=== PATIENT | female | born 1935 | race Caucasian/White ===

== ENCOUNTER 2019-02-03 12:31 | Inpatient (IN) ==
[2019-02-03] MEDS ORDERED: NORCO-5 PO ONE (13:41)
[2019-02-03] MEDS ORDERED: ZOFRAN IV ONE (14:42)
[2019-02-03] MEDS ORDERED: MORPHINE IV ONE (14:42)
--- NOTE | 2019-02-03 14:42 | Diag Imaging Result Doc PS360 ---
XRAY PELVIS W/HIP 2-3VW LT - 02/03/2019 INDICATION: fall with left hip pain TECHNIQUE: Three views COMPARISON: None FINDINGS: There is a displaced and badly comminuted intertrochanteric fracture of the left proximal femur. No dislocation. IMPRESSION: Badly comminuted, displaced intertrochanteric left hip fracture. Electronically signed by Korey Godoy 02/03/2019 2:40 PM
[2019-02-03 15:51] LABS: BASO# 0.02 X1000 (0.0-0.2); BASO% 0.1 % (0.0-0.8); EOS# 0.09 X1000 (0.0-0.7); EOS% 0.5 % (0.0-10.0); HEMATOCRIT 37.9 % (37.0-47.0); HEMOGLOBIN 12.4 g/dL (12.0-16.0); IMM GRAN# 0.06 X1000 (0.0-0.04); IMM GRAN% 0.4 % (0.0-0.5); LYMPH# 1.44 X1000 (1.2-3.4); LYMPH% 8.8 % (20.5-51.1); MCH 28.4 PG (27-31); MCHC 32.7 g/dL (33-37); MCV 86.9 FL (81-99); MONO# 0.53 X1000 (0.11-0.59); MONO% 3.2 % (1.7-9.3); NEUT# 14.25 X1000 (1.4-6.5); PLT 134 X1000 (130-400); RBC 4.36 XMIL (4.2-5.4); RDW 13.3 % (11.5-14.5); WBC 16.39 X1000 (4.8-10.8)
[2019-02-03 16:03] LABS: ALB/GLOB RATIO 1.4; ALBUMIN 3.9 g/dL (3.5-5.0); CALCIUM 8.8 mg/dL (8.8-10.2); CREATININE 1.4 mg/dL (0.5-0.9); POTASSIUM 4.2 mmol/L (3.5-5.1); TOTAL BILIRUBIN 0.22 mg/dL (0.20-1.00); TOTAL PROTEIN 6.7 g/dL (6.3-8.3)
--- NOTE | 2019-02-03 16:32 | PROVIDER DOCUMENTATION ---
This chart was entered by Gisela Jones Scribe, acting as scribe for Corin Ho MD. 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 Pt denies hitting head or LOC. Pt has hx of HTN and DM. Quality of Pain: reports: sharp Severity in ED: mild, moderate Onset/Duration: just prior to arrival Timing: still present Modifying Factors: worse with: movement, palpation Any recent injury?: Yes Locality of Occurance: Home Similar Symptoms Previously?: No Recently seen or treated by another doctor?: No - FALL INJURY Location of Pain/Injury: reports: pelvis (left) Reason for Fall: reports: lost balance Symptoms prior to fall:: reports: none Loss of Consciousness: no loss of consciousness Injury Associated Symptoms: reports: joint pain (left hip), unable to bear weight (left hip) Review of Systems - Adult - REVIEW OF SYSTEMS - ADULT Constitutional: reports: see HPI. denies: chills, fever, fatique Eyes: reports: no symptoms reported Ears, Nose, Mouth & Throat: reports: no symptoms reported Cardiovascular: reports: see HPI. denies: chest pain, palpitations Respiratory: reports: no symptoms reported Gastrointestinal: reports: no symptoms reported Genitourinary: reports: no symptoms reported Musculoskeletal: reports: see HPI, joint pain (left hip). denies: neck pain Integumentary: reports: no symptoms reported Neurological: reports: no symptoms reported Psychiatric: reports: no symptoms reported Endocrine: reports: no symptoms reported Hematologic/Lymphatic: reports: no symptoms reported Allergic/Immunologic: reports: no symptoms reported All Other Systems: Reviewed and Negative Past History - Adult - PAST MEDICAL HISTORY-ADULT Review of Records: reports: Nursing Assessment Review, Medications Reviewed, Social history reviewed & non-contributory. Major Childhood Illnesses: reports: denies history Cardiovascular: reports: HTN Respiratory: reports: denies history Gastrointestinal: reports: denies history Obstetrical/Gynecological: reports: denies history Genitourinary: reports: denies history Musculoskeletal: reports: denies history Neurological: reports: denies history Endocrine/Immune: reports: Diabetes Other Conditions: reports: denies history - PRIOR SURGERIES/PROCEDURES Surgical/Procedure History: reports: cholecystectomy, hysterectomy - IMMUNIZATION STATUS Childhood Immunizations: See Nurse Assessment Flu Vaccine: See Nurse Assessment - FAMILY HISTORY Family History: reviewed, not pertinent - SOCIAL HISTORY Smoking: denies Physical Exam-Injury Related - Physical Exam-Injury Related Initial Vital Signs Reviewed: Yes General Appearance: appears well, alert, mild distress. negative: anxious, combative Immobilization?: negative: backboard, C-collar Eyes: PERRL/EOMI, pink conjunctivae. negative: photophobia Head, Ears, Nose, Mouth & Throat: normocephalic/atraumatic, moist mucous membranes. negative: angioedema Neck: full range of motion, normal inspection. negative: C-spine tenderness Respiratory: chest non-tender, lungs clear, normal breath sounds. negative: rhonchi, stridor, wheezing Cardiovascular: normal peripheral pulses, regular rate, rhythm, no edema. negative: bradycardia, tachycardia Abdominal Exam: normal bowel sounds, non tender, soft. negative: guarding, rigid Back Exam: normal inspection, no CVA tenderness, no vertebral tenderness Extremity: no pedal edema, no calf tenderness, normal capillary refill, tenderness (left hip), other (limited ROM to left hip). negative: deformity Integumentary: normal color. negative: erythema, jaundice Psych/Mental Status: normal mood/affect, oriented x 3. negative: anxious, disheveled - Glascow Coma Score Best Eye Response ([place]): (4) open spontaneously Best Verbal Response ([place]): (5) oriented Best Motor Response ([place]): (6) obeys commands [place] Total: 15 Progress - PLAN OF CARE/RESULTS Progress/Plan/Lab Results: Vital Signs - 8 hr 02/03/19 12:42 Temperature 98.3 F Pulse Rate 71 Respiratory Rate 16 Blood Pressure 127/52 O2 Sat by Pulse Oximetry 98 Laboratory Results - last 24 hr 02/03/19 02/03/19 14:23 14:23 WBC 16.39 H RBC 4.36 Hgb 12.4 Hct 37.9 MCV 86.9 MCH 28.4 MCHC 32.7 L RDW Std Deviation 13.3 Plt Count 134 MPV Not Reportable Immature Gran % (Auto) 0.4 Neut % (Auto) 87.0 H Lymph % (Auto) 8.8 L [place] % (Auto) 3.2 Eos % (Auto) 0.5 Baso % (Auto) 0.1 Immature Gran # (Auto) 0.06 H Neut # (Auto) 14.25 H Lymph # (Auto) 1.44 [place] # (Auto) 0.53 Eos # (Auto) 0.09 Baso # (Auto) 0.02 Sodium 136 Potassium 4.2 Chloride 100 Carbon Dioxide 24 L Anion Gap 12 BUN 32 H Creatinine 1.4 H Estimated GFR/1.73 m2 36 BUN/Creatinine Ratio 23 Glucose 211 H Calculated Osmolality 285 Calcium 8.8 Total Bilirubin 0.22 AST 22 ALT 18 Alkaline Phosphatase 97 Total Protein 6.7 Albumin 3.9 Globulin 2.8 Albumin/Globulin Ratio 1.4 Orders Category Date Time Status XRAY PELVIS W/HIP 2-3VW LT [RAD] Stat Exams 02/03/19 13:41 Completed CBC WITH DIFF [HEME] Stat Lab 02/03/19 14:23 Completed CMP [COMPREHENSIVE METABOLIC PANEL] [CHEM] Stat Lab 02/03/19 14:23 Completed Hydrocodone/APAP 5 mg/325 mg [[place]-5] Med 02/03/19 13:41 Discontinued 1 each PO NOW ONE Morphine Med 02/03/19 14:42 Discontinued 4 mg IV NOW ONE Ondansetron [Zofran] Med 02/03/19 14:42 Discontinued 4 mg IV NOW ONE Permit for: Routine Oth 02/03/19 15:56 Ordered Result Diagrams: 02/03/19 14:23 02/03/19 14:23 - XRAY 1 XRAY: Left XRAY Study: Pelvis, Hip Impression: See EMR Report (IMPRESSION: Badly comminuted, displaced intertrochanteric left hip fracture. Electronically signed by Korey Godoy 02/03/2019 2:40 PM) - CONSULTS/PCP/HOSPITALIST Notification #1 *Consult/PCP/Hospitalist*: Dr. Duncan Time Discussed: 15:25 Consult Disposition: other (will consult after pt is admitted to hospitalist) #2 Consult: Ann/[employer] Time Discussed: 15:38 Consult Disposition: Admit (accepts admission), other (wants labs back and then call her back) Departure - Departure Date of Disposition Decision: 02/03/19 Time of Disposition Decision: 16:24 DIAGNOSIS: Fracture of left femur Qualifiers: Encounter type: initial encounter Femur location: intertrochanteric Fracture type: closed Fracture alignment: displaced Qualified Code(s): S72.142A - Displaced intertrochanteric fracture of left femur, initial encounter for closed fracture CKD (chronic kidney disease) Qualifiers: Chronic kidney disease stage: unspecified stage Qualified Code(s): N18.9 - Chronic kidney disease, unspecified Disposition: ADMITTED INPATIENT 09 Certified Medical Emergency: Emergent Condition: Stable Referrals and Follow-Ups: Tanner Murphy MD [Primary Care Provider] - - Critical Care Note This patient required my direct & personal management of CC.: No Attestation - Physician/ LIU Attestation Patient care was provided by Advanced Practice Provider:: No The physician spent face to face time with patient:: Yes Advanced Practice Provider documentation review:: Supervising physician onsite and consulted in the evaluation and care of this patient. The physician did have a face to face encounter with the patient. This chart was documented by the indicated scribe, (Gisela Jones Scribe) and accurately reflects the services I performed and decisions made by me, Corin Ho MD, as attested by the provider's signature.
[2019-02-03] MEDS ORDERED: ROBINUL ONE (16:33)
[2019-02-03] MEDS ORDERED: XYLOCAINE-MPF 2% ONE (16:33)
[2019-02-03] MEDS ORDERED: DIPRIVAN 1% ONE (16:33)
[2019-02-03 16:40] LABS: URINE SOURCE CATH
[2019-02-03 16:43] LABS: BILIRUBIN URINE NEGATIVE (NEGATIVE); BLOOD URINE NEGATIVE (NEGATIVE); COLOR YELLOW; GLUCOSE URINE 300 mg/dL (NEGATIVE); KETONE URINE NEGATIVE (NEGATIVE); LEUKOCYTES URINE NEGATIVE (NEGATIVE); NITRITE URINE NEGATIVE (NEGATIVE); PH URINE 5.5; PROTEIN URINE NEGATIVE (NEGATIVE); SP GRAVITY URINE 1.019; TURBIDITY URINE CLEAR (CLEAR); UR EPITHELIAL CELLS <10 /HPF (<10); URINE BACTERIA NEGATIVE /HPF; URINE RBC <10 /HPF (<10); URINE WBC <10 /HPF (<10); UROBILINOGEN URINE NORMAL (NORMAL)
[2019-02-03] MEDS ORDERED: KEFZOL 1 GM/D5W 1 GM/50 ML IVPB ONE (16:50)
[2019-02-03] MEDS ORDERED: ZOFRAN IV PRN ×2 (16:59→19:02)
[2019-02-03] MEDS ORDERED: TYLENOL PO PRN (16:59)
[2019-02-03] MEDS ORDERED: NS 1,000 ML IV SCH (17:00)
--- NOTE | 2019-02-03 17:01 | ORTHOPAEDICS CONSULTATION ---
DATE: 02/03/2019 BRIEF HISTORY: The patient is an 83-year-old female, who is status post fall off a two-step ladder, injuring her left hip. She developed immediate pain and discomfort in the left hip. She denies loss of consciousness. She presented to the emergency room. X-rays were obtained and revealed a left displaced intertrochanteric femur fracture. Orthopedic consultation is requested. ALLERGIES: Latex and penicillin. PAST MEDICAL HISTORY: Type 2 diabetes, essential hypertension, hypercholesterolemia, and chronic kidney disease. PAST SURGICAL HISTORY: Cholecystectomy and hysterectomy. PHYSICAL EXAMINATION: General: Patient is awake, alert, and cooperative with exam. Neck: Cervical spine is nontender to palpation. She is nontender with range of motion. Extremities: Bilateral upper extremities nontender to palpation. Nontender with gentle movement. The patient's left hip is shortened and slightly held in a flexed position with toe under her knee. She has tenderness to palpation diffusely along the hip. Tenderness to gentle movement. Compartments are soft. She has active dorsiflexion and plantar flexion. Her right lower extremity is nontender to palpation and nontender with gentle movement. Her right lower extremity has no palpable deformity. Calf is soft. The rest intact. She is grossly neurovascularly intact, bilaterally. IMAGING: X-rays were reviewed revealing a left displaced intertrochanteric femur fracture. IMPRESSION: Left displaced intertrochanteric femur fracture. PLAN: At this point, discussed treatment options with the patient and family. At this time, would recommend proceeding with intramedullary nail of the left femur. Risks and benefits of surgery were explained, including the risks of anesthesia, , bleeding, infection, failure to relieve pain, postoperative stiffness, nerve injury, blood clots, and other imponderables. All questions were answered. The patient and family agree treatment plan. HOME MEDICATIONS: Amlodipine besylate 5 mg p.o. daily, vitamin D 50,000 unit capsule p.o. q 7 days, glipizide 10 mg p.o. b.i.d., hydrochlorothiazide 25 mg p.o. q daily, losartan potassium 100 mg p.o. daily, simvastatin 5 mg p.o. q. P.m., vitamin D3 5000 unit capsule p.o. daily, magnesium oxide 4 mg p.o. daily. cc: Toi Duncan MD
[2019-02-03] MEDS ORDERED: KETAMINE ONE (17:05)
[2019-02-03] MEDS ORDERED: OFIRMEV 1000 MG/ISOTONIC SOLN 1,000 MG/100 ML BOTTLE ONE (17:11)
[2019-02-03] MEDS ORDERED: ZOFRAN ONE (17:12)
[2019-02-03] MEDS ORDERED: DECADRON ONE (17:12)
[2019-02-03] MEDS ORDERED: GLUCOTROL PO SCH (17:30)
--- NOTE | 2019-02-03 17:43 | HISTORY AND PHYSICAL ---
ADDENDUM: The patient is seen and examined by me [id number]. All the laboratory, vital signs and images were reviewed. 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 X-ray of that area showed a displaced intertrochanteric femur fracture on the left side. This patient has been evaluated by Orthopedic Surgery Department and they will take this patient to the operating room today. This patient has a medical history of hypertension, diabetes and dyslipidemia. We will monitor this patient closely. She is allergic to penicillin. I agree with the rest of the nurse practitioner's assessment and plan. cc: Adin Dickinson MD
--- NOTE | 2019-02-03 17:53 | HISTORY AND PHYSICAL ---
PRIMARY CARE PROVIDERS: Tanner Murphy MD or Lary Christian, his nurse practitioner. CHIEF COMPLAINT: Fall with left hip pain. HISTORY OF PRESENT ILLNESS: Ms. Reva Pal is an 83-year-old female with a medical history of diabetes mellitus type 2, hypertension, hyperlipidemia, CKD stage 2, who states that she was on a 2 step ladder, was going to put some garland up in her tree before going to the grocery store. She had a fall. She said she actually fell on her right side but felt the pain in the left side. Her neighbor saw this incident happen and called 911. She presented had imaging that revealed that she had a badly comminuted, displaced intertrochanteric left hip fracture. Dr. Duncan was consulted and she is going for urgent surgery at this time. PAST MEDICAL HISTORY: 1. Diabetes mellitus type 2. 2. Hypertension. 3. Hyperlipidemia. 4. Anxiety, depression. 5. CKD stage 2. SURGICAL HISTORY: 1. Hysterectomy. 2. Cholecystectomy. 3. Bilateral cataracts. SOCIAL HISTORY: Denies tobacco, alcohol, or illicit drug use. She was for 62 years. about 4 years ago. They had a son and a daughter together. She has 2 grandkids. She does not work. She does not use any assistive devices for ambulation. FAMILY HISTORY: Mother had a heart attack. Had to have coronary artery bypass grafting at 85 and did not until she was 96 years old. Father had a massive [place] at age 51. ALLERGIES: Penicillin causes rash. She also has a latex allergy. HOME MEDICATIONS: 1. Amlodipine besylate 5 mg p.o. daily. 2. Glucotrol 10 mg p.o. twice daily. 3. Hydrochlorothiazide 25 mg p.o. daily. 4. Losartan potassium 100 mg p.o. daily. 5. MagOx 400 mg p.o. daily. 6. Simvastatin 5 mg p.o. nightly. 7. Vitamin D2 04264 units p.o. every 7 days. 8. Vitamin D3 5000 units p.o. daily. REVIEW OF SYSTEMS: Fourteen point review of systems are complete and all were negative except for those mentioned above in HPI. PHYSICAL EXAMINATION: VITAL SIGNS: Temperature 98 degrees, heart rate 73, respiratory rate 14, blood pressure 141/64, O2 saturation 95% on room air. GENERAL: Ms. Reva Pal is an 83-year-old female. She is in no acute distress. She is able to answer questions appropriately. HEENT: Atraumatic, normocephalic. Pupils equal, round, reactive to light. Extraocular movements intact. Mucous membranes are dry. NECK: Trachea midline. CARDIOVASCULAR: S1, S2. Regular rate and rhythm. No rubs, gallops, murmurs. No lower extremity edema. There are +2 dorsalis and radial pulses. Negative JVD or carotid bruits. PULMONARY: Clear to auscultation. Bilateral breath sounds. No accessory muscle use or work of breathing noted. GI: Soft, nontender, nondistended. Positive bowel sounds x4. EXTREMITIES: Moves all extremities equally except for the left lower extremity due to recent fracture. Sensations intact. SKIN: Warm, dry, intact. NEUROLOGIC: A and O x3. Follows commands. Sensory is intact. SKIN: Warm and dry. LABORATORY DATA: White blood cells 16,000, hemoglobin 12, hematocrit 37, platelet count 134,000. Sodium 136, potassium 4.2, BUN 32, creatinine is 1.4, glucose 211, calcium 8.8. Bilirubin 0.22, AST 22, ALT 18, albumin 3.9. Urinalysis 300 glucose, otherwise negative. IMAGING: Hip and pelvic x-ray: Badly comminuted, displaced intertrochanteric left hip fracture. ASSESSMENT AND PLAN: 1. Leukocytosis is mostly secondary to inflammatory response of hip fracture. We will monitor this and currently urinalysis is clear. They did not get blood cultures prior to leaving for surgery or a chest x-ray, so those need to be considered. Otherwise, she has no signs or symptoms or complaints of any type of infection. 2. Fall with a left badly comminuted, displaced intertrochanteric hip fracture. Now has left for surgery with Dr. Duncan for surgical repair. 3. Diabetes mellitus type 2. Will do pattern blood glucoses and sliding scale insulin. 4. Hypertension. Continue home medications. 5. Hyperlipidemia. Continue statin. 6. Chronic kidney disease stage 2 is stable. 7. Anxiety, depression. No medications for that. 8. Deep venous thrombosis prophylaxis. Will evaluate postop. Dictated by ARASH Alanis for Adin Dickinson MD cc: ARASH Alanisinos, MD
[2019-02-03] MEDS ORDERED: NS 1,000 ML ONE (17:57)
[2019-02-03] MEDS: DILAUDID ONE ×2 (18:00→18:04)
[2019-02-03] MEDS ORDERED: PERCOCET-5 ONE (18:31)
--- NOTE | 2019-02-03 18:48 | OPERATIVE NOTE ---
PROCEDURE DATE: 02/03/2019 PREOPERATIVE DIAGNOSIS: Left displaced intertrochanteric femur fracture. POSTOPERATIVE DIAGNOSIS: Left displaced intertrochanteric femur fracture. PROCEDURE: Intramedullary nailing of the left femur with a Synthes 11 x 380 mm TFN nail. SURGEON: Dr. Toi Duncan. ANESTHESIA: General. IV FLUIDS: 800 mL lactated Ringer. ESTIMATED BLOOD LOSS: 50 mL. COMPLICATIONS: None. INDICATIONS: The patient is an 83-year-old female status post fall from a stepladder earlier today. She developed immediate pain and discomfort in the left hip. She presented to the emergency room. X-rays revealed left displaced intertrochanteric femur fracture. Given patient's findings, recommendation to proceed with intramedullary nailing of the left femur was offered. Risks and benefits of surgery were explained, including the risks of anesthesia, , bleeding, infection, failure to relieve pain, postoperative stiffness, nerve injury, blood clots, and other imponderables. All questions were answered. The patient and family wished to proceed with surgery. DESCRIPTION OF PROCEDURE: The patient was taken to the operating room and placed supine on the operating table. Once adequate anesthesia was obtained, patient was placed on the fracture table. Reduction was then obtained and confirmed with C-arm visualization in both AP and lateral projections. The left lower extremity was subsequently prepped and draped in usual sterile fashion. Approximately three fingerbreadths proximal to the greater trochanter, a lateral incision was made. Blunt dissection was performed to the gluteus mehdi to the tip of the greater trochanter. A guide pin was then placed in position. Had good position in both AP and lateral projections. After this had been performed, the starting reamer was then passed. A ball-tip guide pin was placed in position. The length of the nail was determined to be 380 mm. A 12 mm reamer was easily passed. An 11 x 380 mm Synthes TFN nail was then placed. The ball-tipped guide pin was removed. Using the outrigger guide, guide was placed through a stab incision in the lateral proximal cortex. A guide pin was then placed through the nail, across the fracture site, into the femoral neck and head. Had good position in both AP and lateral projections. The lateral cortex was then reamed. A 95 mm helical blade was then advanced and had excellent purchase. The proximal set screw was tightened in standard fashion. Attention was then turned to the distal femur. Using perfect chefornak technique, two distal locking screws were placed. Final C-arm visualization revealed good alignment of the fracture and good position of the hardware. Wounds were copiously irrigated. #1 Vicryl was used to repair the deep fascia of the proximal wound, followed by 2-0 Vicryl in two proximal wounds, and skin hilaria in all the wounds. Adaptic, sterile 4x4s and a tape was applied to the wounds. Patient tolerated the procedure well. No complications. She was transferred to recovery in stable condition. cc: Toi Duncan MD
[2019-02-03] MEDS ORDERED: MILK OF MAGNESIA PO PRN (19:02)
[2019-02-03] MEDS ORDERED: MORPHINE IV PRN (19:02)
[2019-02-03] MEDS ORDERED: HALDOL IV PRN (19:15)
[2019-02-03] MEDS: HUMULIN R SUBQ SCH (21:00)
[2019-02-04] MEDS: KEFZOL 1 GM/D5W 1 GM/50 ML IVPB IV SCH ×2 (01:31→11:35)
[2019-02-04] MEDS: TYLENOL PO SCH ×3 (01:31→22:40)
[2019-02-04] MEDS: OXY IR PO PRN ×2 (01:31→12:24)
[2019-02-04] MEDS: XARELTO PO SCH (06:56)
[2019-02-04] MEDS: HUMULIN R SUBQ SCH ×4 (06:57→22:00)
[2019-02-04 07:21] LABS: HEMATOCRIT 32.4 % (37.0-47.0); HEMOGLOBIN 10.3 g/dL (12.0-16.0); IMM GRAN# 0.03 X1000 (0.0-0.04); IMM GRAN% 0.2 % (0.0-0.5); LYMPH# 0.95 X1000 (1.2-3.4); MCH 28.2 PG (27-31); MCHC 31.8 g/dL (33-37); MCV 88.8 FL (81-99); MONO# 0.39 X1000 (0.11-0.59); MONO% 2.9 % (1.7-9.3); MPV 13.8 FL (7.4-10.4); NEUT# 12.19 X1000 (1.4-6.5); NEUT% 89.9 % (42.2-75.2); PLT 119 X1000 (130-400); RBC 3.65 XMIL (4.2-5.4); RDW 13.2 % (11.5-14.5); WBC 13.56 X1000 (4.8-10.8)
[2019-02-04 07:44] LABS: LYMPHS 8 % (21-51); MONO 4 % (1-9); SEGS 88 % (42-75)
--- NOTE | 2019-02-04 07:45 | ORTHOPAEDICS PROGRESS NOTE ---
DATE: 02/04/2019 SUBJECTIVE: The patient is a pleasant 83-year-old female, who is 1 day status post intramedullary nailing of the left femur. She is currently resting comfortably. OBJECTIVE: On physical examination, the patient's left lower extremity dressing is intact. Calf is soft. She does have active dorsiflexion, plantar flexion. LABORATORY DATA: Her hemoglobin is 10.3, hematocrit is 32.4. IMPRESSION: Postoperative day #1 status post intramedullary nailing of the left femur. PLAN: At this point, the patient seems to be resting comfortably with no significant complaints this morning. The patient will be allowed to be weightbearing as tolerated, left lower extremity. We will consult [facility] for discharge planning. cc: Toi Duncan MD
[2019-02-04 07:58] LABS: ALB/GLOB RATIO 1.5; ALBUMIN 3.4 g/dL (3.5-5.0); CALCIUM 8.1 mg/dL (8.8-10.2); CREATININE 1.6 mg/dL (0.5-0.9); MAGNESIUM 1.9 mg/dL (1.5-2.7); TOTAL BILIRUBIN 0.28 mg/dL (0.20-1.00); TOTAL PROTEIN 5.6 g/dL (6.3-8.3)
[2019-02-04 08:25] LABS: POTASSIUM 4.9 mmol/L (3.5-5.1)
[2019-02-04] MEDS: NS 1,000 ML IV SCH ×2 (08:29→11:34)
[2019-02-04] MEDS: ZOCOR PO SCH ×2 (08:30→22:36)
[2019-02-04] MEDS: COLACE PO SCH ×2 (08:30→22:35)
[2019-02-04] MEDS: VITAMIN D PO SCH (11:35)
[2019-02-04] MEDS: GLUCOTROL PO SCH ×2 (11:35→22:34)
[2019-02-04] MEDS: FERROUS SULFATE PO SCH (11:35)
[2019-02-04] MEDS: HYDROCHLOROTHIAZIDE PO SCH (11:36)
[2019-02-04] MEDS: NORVASC PO SCH (11:37)
[2019-02-04] MEDS: MAG-OX PO SCH (11:37)
[2019-02-04] MEDS: COZAAR PO SCH (11:37)
[2019-02-04] MEDS: PERIDEX MT SCH ×2 (13:26→22:34)
[2019-02-05] MEDS: XARELTO PO SCH (06:52)
[2019-02-05] MEDS: TYLENOL PO SCH ×3 (06:52→22:20)
[2019-02-05] MEDS: HUMULIN R SUBQ SCH ×4 (07:00→22:20)
[2019-02-05 07:03] LABS: BASO# 0.01 X1000 (0.0-0.2); BASO% 0.1 % (0.0-0.8); EOS# 0.13 X1000 (0.0-0.7); HEMATOCRIT 27.8 % (37.0-47.0); IMM GRAN# 0.03 X1000 (0.0-0.04); IMM GRAN% 0.2 % (0.0-0.5); LYMPH# 2.99 X1000 (1.2-3.4); LYMPH% 23.6 % (20.5-51.1); MCH 28.7 PG (27-31); MCHC 32.4 g/dL (33-37); MCV 88.5 FL (81-99); MONO% 4.7 % (1.7-9.3); MPV 13.9 FL (7.4-10.4); NEUT# 8.92 X1000 (1.4-6.5); NEUT% 70.4 % (42.2-75.2); PLT 102 X1000 (130-400); RBC 3.14 XMIL (4.2-5.4); RDW 13.1 % (11.5-14.5); WBC 12.68 X1000 (4.8-10.8)
[2019-02-05 07:33] LABS: ALB/GLOB RATIO 1.3; ALBUMIN 2.9 g/dL (3.5-5.0); CALCIUM 7.9 mg/dL (8.8-10.2); CREATININE 1.6 mg/dL (0.5-0.9); POTASSIUM 4.1 mmol/L (3.5-5.1); TOTAL BILIRUBIN 0.27 mg/dL (0.20-1.00); TOTAL PROTEIN 5.1 g/dL (6.3-8.3)
[2019-02-05] MEDS: NS 1,000 ML IV SCH (08:05)
[2019-02-05] MEDS: FERROUS SULFATE PO SCH (08:07)
[2019-02-05] MEDS: MAG-OX PO SCH (09:50)
[2019-02-05] MEDS: NORVASC PO SCH (09:50)
[2019-02-05] MEDS: GLUCOTROL PO SCH ×2 (09:50→22:20)
[2019-02-05] MEDS: HYDROCHLOROTHIAZIDE PO SCH (09:50)
[2019-02-05] MEDS: VITAMIN D PO SCH (09:50)
[2019-02-05] MEDS: PERIDEX MT SCH ×2 (09:50→22:20)
[2019-02-05] MEDS: COZAAR PO SCH (09:50)
[2019-02-05] MEDS: OXY IR PO PRN (10:38)
--- NOTE | 2019-02-05 19:25 | ORTHOPAEDICS PROGRESS NOTE ---
DATE: 02/05/2019 SUBJECTIVE: Ms. Pal is a pleasant 83-year-old female who is postop day 2 of an intramedullary nailing of the left femur. She is resting comfortably in bed at this time. She is talking without any acute distress. She states that she has ambulated twice today, both of which were to the bedside commode, and she was not able to bear much weight on her left lower extremity. OBJECTIVE: On physical exam, Ms. Pal's left lower extremity dressing is intact, clean and dry. There is no drainage noted at this time. There is no surrounding redness of any of her incisions. Her calf is soft. She does have active dorsiflexion and plantar flexion of her left foot. Her sensation is what it was prior to surgery, which is slightly decreased, but this has been a chronic problem. Her most recent vital signs show a heart rate of 59 and blood pressure of 122/41. LABORATORY DATA: Her hemoglobin and hematocrit today are 9 and 27, and she is asymptomatic from this. ASSESSMENT: Postoperative day 2, status post intramedullary nailing of the left femur. PLAN: At this point Ms. Pal can continue to be weightbearing as tolerated to her left lower extremity. [facility] has been consulted for discharge planning. Ms. Pal states that she believes at this time that she will be going to [facility] for rehab. She will ultimately be discharged by the hospitalist team. Dictated by ARASH Galeana for Toi Duncan MD cc: Toi Duncan MD
[2019-02-05] MEDS: ZOCOR PO SCH (22:20)
[2019-02-05] MEDS: COLACE PO SCH (22:20)
[2019-02-06] MEDS: XARELTO PO SCH (05:37)
[2019-02-06] MEDS: TYLENOL PO SCH (05:37)
[2019-02-06] MEDS: NS 1,000 ML IV SCH (06:40)
[2019-02-06 07:13] LABS: BASO# 0.02 X1000 (0.0-0.2); BASO% 0.2 % (0.0-0.8); EOS% 4.1 % (0.0-10.0); HEMATOCRIT 28.3 % (37.0-47.0); IMM GRAN# 0.02 X1000 (0.0-0.04); IMM GRAN% 0.2 % (0.0-0.5); LYMPH# 1.53 X1000 (1.2-3.4); LYMPH% 15.6 % (20.5-51.1); MCH 28.1 PG (27-31); MCHC 31.8 g/dL (33-37); MCV 88.4 FL (81-99); MONO# 0.67 X1000 (0.11-0.59); MONO% 6.8 % (1.7-9.3); MPV 13.9 FL (7.4-10.4); NEUT# 7.17 X1000 (1.4-6.5); NEUT% 73.1 % (42.2-75.2); PLT 114 X1000 (130-400); RDW 13.1 % (11.5-14.5); WBC 9.81 X1000 (4.8-10.8)
[2019-02-06 07:29] LABS: ALB/GLOB RATIO 1.2; CALCIUM 8.1 mg/dL (8.8-10.2); CREATININE 1.5 mg/dL (0.5-0.9); MAGNESIUM 1.9 mg/dL (1.5-2.7); POTASSIUM 4.7 mmol/L (3.5-5.1); TOTAL BILIRUBIN 0.34 mg/dL (0.20-1.00); TOTAL PROTEIN 5.6 g/dL (6.3-8.3)
[2019-02-06] MEDS: HUMULIN R SUBQ SCH ×2 (07:30→11:48)
[2019-02-06] MEDS: FERROUS SULFATE PO SCH (10:31)
[2019-02-06] MEDS: VITAMIN D PO SCH (10:31)
[2019-02-06] MEDS: COZAAR PO SCH (10:31)
[2019-02-06] MEDS: HYDROCHLOROTHIAZIDE PO SCH (10:31)
[2019-02-06] MEDS: GLUCOTROL PO SCH (10:31)
[2019-02-06] MEDS: NORVASC PO SCH (10:32)
[2019-02-06] MEDS: PERIDEX MT SCH (10:32)
[2019-02-06] MEDS: MAG-OX PO SCH (10:32)
[2019-02-06 11:02] VITALS: BP 135/49
--- NOTE | 2019-02-06 11:37 | DISCHARGE SUMMARY ---
ADMISSION DATE: 02/03/2019 DISCHARGE DATE: 02/06/2019 DISCHARGE DIAGNOSES: 1. Left displaced intertrochanteric femur fracture status post intramedullary nailing of the left femur, postoperative day #3. 2. Type 2 diabetes. 3. Hypertension. 4. Hyperlipidemia. 5. Anxiety/depression, situational. 6. Chronic kidney disease stage 2. PROCEDURES PERFORMED: 1. Hip and pelvis x-ray dated 02/03/2019. Impression: Displaced intertrochanteric left hip fracture. Intramedullary nailing. 2. Intramedullary nailing of the left femur due to left displaced intertrochanteric femur fracture. Procedure date 02/03/2019. HOSPITAL COURSE: An 83-year-old female with a past medical history of diabetes, hypertension, hyperlipidemia, CKD stage 2, admitted on 02/03/2019 due to a left intertrochanteric hip fracture. Apparently, she was on a 2 step ladder and was going to put some garland up in her tree before going to the grocery store and she fell. Imaging revealed a comminuted displaced intertrochanteric left hip fracture. She was taken to the OR that day and that fracture was repaired with an intramedullary nailing of the left femur fracture with Synthes 11 x 380 mm TFN nail. The patient recover good from the surgery and she did not have any acute events during this hospitalization. She has been working in physical therapy. She has been placed on anticoagulation to avoid DVTs. Actually, she will be discharged today to a rehab center. She will continue and complete her DVT prophylaxis for 35 days. She will need 32 more doses of Xarelto 10 mg. The patient seems to be doing better. No acute events overnight. She is completely awake and alert and oriented x3. PHYSICAL EXAMINATION: Vital signs: Temperature 98.1 degrees, pulse 71, respiratory rate 20, blood pressure 125/73, oxygen saturation 97 on room air. HEENT: Head normocephalic, no trauma. PERRLA. Neck: Is supple. No JVD. No masses. Central trachea. Chest: Clear to auscultation. No wheezing. No rales. Abdomen: Soft, nontender, nondistended. No hepatosplenomegaly. Extremities: Left hip is a little bit edematous with a clean wound with some hilaria. No signs of infection or bleeding. She is able to move all of all 4 extremities. No vascular lesion. Neurological examination: The patient is awake, alert. She is oriented x3. No focal deficits. LABORATORY: WBC 9.8, hemoglobin 9, hematocrit 28.3, platelets 114,000. Sodium 142, potassium 4.7, chloride 107, bicarbonate 25, BUN 29, creatinine 1.5, glucose 146, calcium 8.1, albumin 3. DISCHARGE MEDICATIONS: Amlodipine 5 mg p.o. daily, vitamin D3 5000 units p.o. daily, docusate 200 mg p.o. at bedtime, vitamin D2 1 capsule p.o. q.7 days, ferrous sulfate 325 mg p.o. with breakfast, glipizide 10 mg p.o. b.i.d., hydrochlorothiazide 25 mg p.o. daily, losartan 100 mg p.o. daily, milk of magnesia 30 mL p.o. as needed for constipation, magnesium oxide 400 mg p.o. daily, oxycodone IR 5 mg p.o. q.3 hours as needed for pain, Xarelto 10 mg p.o. q.24 hours x32 pills, simvastatin 5 mg p.o. q.p.m. TIME SPENT: Time discharging this patient, doing the paperwork and full evaluation, 35 minutes. cc: MD Toi Russo MD
[2019-02-08] MEDS ORDERED: VITAMIN D PO SCH (09:00)
== END 2019-02-06 13:13 | DRG 482 ==
LOC: SUPCPDRO → ED 12:31 → 4N 16:55
PROVIDERS: ADMIT Orthopaedic Surgery Adult Reconstructive Orthopaedic Surgery; ATTEND Orthopaedic Surgery Adult Reconstructive Orthopaedic Surgery